=== PATIENT | male | born 1955 | race Caucasian/White ===

== ENCOUNTER 2018-09-09 11:06 | Emergency (ER) | payer BC ==
[~2018-09-09] VITALS: Ht 177.8 cm; Wt 90.9 kg
[~2018-09-09 11:06] MED LIST: ADV50250 IH; HYDR-4353 PO
[2018-09-09 12:04] LABS: BASOPHILS # (AUTO) 0.1 X10'3 (0-0.2); BASOPHILS % (AUTO) 1.2 % (0-1); EOSINOPHILS # (AUTO) 0.2 X10'3 (0-0.9); EOSINOPHILS % (AUTO) 4.6 % (0-6); HEMATOCRIT 42.6 % (42.0-52.0); HEMOGLOBIN 14.6 g/dl (14.0-17.9); LYMPHOCYTES % (AUTO) 19.4 % (21-51); MEAN CORPUSCULAR HEMOGLOBIN 31.4 PG (27.0-31.0); MEAN CORPUSCULAR HGB CONC 34.3 g/dL (33.0-36.5); MEAN CORPUSCULAR VOLUME 91.5 FL (78-98); MEAN PLATELET VOLUME 7.9 FL (7.4-10.4); MONOCYTES # (AUTO) 0.7 X10'3 (0-0.9); MONOCYTES % (AUTO) 13.5 % (2-12); NEUTROPHILS # (AUTO) 3.1 X10'3 (1.8-7.7); NEUTROPHILS % (AUTO) 61.3 % (42-75); PLATELET COUNT 185 X10'3 (140-440); RED BLOOD COUNT 4.65 X10'6 (4.70-6.10); RED CELL DISTRIBUTION WIDTH 13.3 % (11.5-14.5); WHITE BLOOD COUNT 5.1 X10'3 (4.5-11.0)
[2018-09-09 12:16] LABS: INR 1.1 INR; PARTIAL THROMBOPLASTIN TIME 35 SECONDS (22-32)
[2018-09-09 12:22] LABS: ALANINE AMINOTRANSFERASE 47 U/L (12-78); ALBUMIN 3.5 G/DL (3.4-5.0); ALBUMIN/GLOBULIN RATIO 0.8 (1.1-1.5); ALKALINE PHOSPHATASE 57 IU/L (46-116); ANION GAP 9 (8-16); ASPARTATE AMINO TRANSFERASE 29 U/L (10-37); BILIRUBIN,TOTAL 0.9 MG/DL (0.1-1.0); BLOOD UREA NITROGEN 16 MG/DL (7-18); BUN/CREATININE RATIO 14.3 (5.4-32.0); CHLORIDE 98 MMOL/L (99-107); CREATININE 1.12 MG/DL (0.60-1.10); GLUCOSE 88 MG/DL (70-104); POTASSIUM 3.9 MMOL/L (3.5-5.1); SODIUM 132 MMOL/L (135-145); TOTAL CARBON DIOXIDE 25.5 MMOL/L (24-32); TOTAL PROTEIN 7.7 G/DL (6.4-8.2); eGFR 66 ML/MIN
[2018-09-09] MEDS: ketorolac trometh inj. 60 MG/2 ML VIAL IM ONE (14:37)
[2018-09-09] MEDS ORDERED: HYDR-4353 PO (16:00)
[2018-09-09] MEDS ORDERED: ORPH100T2 PO (16:00)
[2018-09-09 16:05] VITALS: BP 150/97
--- NOTE | 2018-09-09 16:05 | NUR ---
PHONED PATIENT'S PMD DR BURKS; APPOINTMENT MADE FOR 09/10/[id number] BURKS
[2018-09-09] MEDS: orphenadrine citrate 60mg/2ml inj. IM ONE (16:09)
== END 2018-09-09 16:25 | disposition home or self-care (01) ==
LOC: ER 11:06
DX: M48.02 Spinal stenosis, cervical region (principal); R51 Headache; R79.1 Abnormal coagulation profile; J45.909 Unspecified asthma, uncomplicated; Z88.2 Allergy status to sulfonamides; Z79.899 Other long term (current) drug therapy
CPT/HCPCS: 36415; 71045; 72125; 80053; 84484; 85025; 85610; 85730; 93005; 96372; 99284; J1885